=== PATIENT | female | born 1990 | race Caucasian/White ===

== ENCOUNTER 2016-06-26 18:53 | Emergency (ER) | payer OTHER ==
[~2016-06-26] VITALS: Ht 144.8 cm; Wt 63.0 kg
[2016-06-26 20:43] LABS: MCH 27.9 PG (29.0-34.0); MCV 82.2 FL (83-99); MEAN PLAT.VOLUME 10.1 uM^3 (9.5-12.4); PLATELET COUNT 225 K/uL (156-360); RBC DIS.WIDTH-CV 11.9 % (11.8-14.6); RBC DIS.WIDTH-SD 35.4 % (39-53); RED BLOOD COUNT 4.26 M/uL (3.80-5.20); WHITE BLOOD COUNT 13.9 K/uL (4.1-10.2)
[2016-06-26 20:51] LABS: CHLORIDE 114 mEq/L (99-109); POTASSIUM 3.1 mEq/L (3.7-5.4); SODIUM 142 mEq/L (136-147)
[2016-06-26 20:53] LABS: GLUCOSE 102 mg/dL (70-99)
[2016-06-26 20:54] LABS: ANION GAP 11 MEQ/L (2-14)
[2016-06-26 20:57] LABS: GFR ESTIMATE (CALCULATED) > 59 mL/min/
[2016-06-26 20:58] LABS: UREA NITROGEN (BUN) 10 mg/dL (9-23)
[2016-06-26 22:05] VITALS: BP 113/80
== END 2016-06-26 22:06 | disposition home or self-care (01) ==
LOC: EME → EDBD 18:53 → EME 18:53
PROVIDERS: Emergency Medicine
DX: G40.909 Epilepsy, unspecified, not intractable, without status epilepticus (principal)
CPT/HCPCS: 70450; 80048; 85027; 99281; 99285; J7030

== ENCOUNTER 2016-12-30 20:29 | Emergency (ER) | payer OTHER ==
[~2016-12-30] VITALS: Ht 142.2 cm; Wt 63.6 kg
[2016-12-30 21:33] LABS: EOSINOPHIL (%) 0.8 % (0-5); EOSINOPHIL COUNT 0.1 K/uL (0-0.3); HEMATOCRIT 35.6 % (36.0-46.0); IMMATURE GRANULOCYTE (%) 0.3 % (0.0-0.7); INSTRUMENT ABS NEUTROPHIL CT 4.9 K/uL; LYMPHOCYTE COUNT 1.9 K/uL (1.0-2.8); MCH 27.5 PG (29.0-34.0); MCHC 32.9 G/DL (30.0-36.0); MCV 83.8 FL (83-99); MEAN PLAT.VOLUME 9.5 uM^3 (9.5-12.4); MONOCYTE (%) 6.7 % (3-12); MONOCYTE COUNT 0.5 K/uL (0-0.8); NEUTROPHIL COUNT 4.9 K/uL (1.8-6.4); PLATELET COUNT 295 K/uL (156-360); RBC DIS.WIDTH-CV 11.6 % (11.8-14.6); RBC DIS.WIDTH-SD 35.1 % (39-53); RED BLOOD COUNT 4.25 M/uL (3.80-5.20); WHITE BLOOD COUNT 7.4 K/uL (4.1-10.2)
[2016-12-30 21:39] LABS: CHLORIDE 113 mEq/L (99-109); POTASSIUM 3.9 mEq/L (3.7-5.4); SODIUM 139 mEq/L (136-147)
[2016-12-30 21:42] LABS: GLUCOSE 113 mg/dL (70-99)
[2016-12-30 21:43] LABS: ANION GAP 8 MEQ/L (2-14); TOTAL BILIRUBIN 0.1 mg/dL (0.0-1.0)
[2016-12-30 21:45] LABS: ALKALINE PHOSPHATASE 75 IU/L (3-129); GFR ESTIMATE (CALCULATED) > 59 mL/min/
[2016-12-30 21:46] LABS: UREA NITROGEN (BUN) 10 mg/dL (9-23)
[2016-12-30 21:54] LABS: TROP-I INTERPRETATION NEGATIVE; TROPONIN-I < 0.01 ng/mL (0.0-0.30)
[2016-12-30 21:55] LABS: QUANTITATIVE HCG < 4.0 MIU/ML
[2016-12-31 00:40] VITALS: BP 103/86
== END 2016-12-31 00:41 | disposition home or self-care (01) ==
LOC: EME 20:29
PROVIDERS: Emergency Medicine
DX: R07.89 Other chest pain (principal); R13.10 Dysphagia, unspecified; F79 Unspecified intellectual disabilities; R56.9 Unspecified convulsions
CPT/HCPCS: 71020; 71275; 80053; 84484; 84702; 85025; 85379; 93005; 99281; 99285; J1885; J3010; J7030